=== PATIENT | female | born 1945 | race Caucasian/White ===

== ENCOUNTER 2017-01-31 08:18 | Day surgery (SDC) | payer MEDICARE, OTHER ==
[2015-12-28 22:19] VITALS: BMI 27.4
[2017-01-31] MEDS ORDERED: Lactated Ringer's 500 ML IV ONE ×3 (11:25)
[2017-01-31] MEDS ORDERED: Propofol 10 mg/ml Inj (20 ML) ONE (11:27)
--- NOTE | 2017-01-31 11:27 | CP.SDSHP ---
Same Day Surgery H & P - History Proposed Procedure: EGD Pre-Op Diagnosis: SEE NOTES - Previous Medical/Surgical History Cardiac: Hypertension Pulmonary: Asthma Endocrine/Metabolic: Diabetes, Other - Allergies Allergies: Allergies Penicillins Allergy (Verified 01/31/17 09:24) SWELLING - Physical Exam General Appearance: N Vital Signs: Vital Signs 01/31/17 08:45 Temperature 99 F Pulse Rate 70 Respiratory 19 Rate Blood Pressure 116/50 L O2 Sat by Pulse 97 Oximetry Mental Status: Alert & Oriented x3 Neuro: WNL Lungs: Other GI: WNL - {Optional Preform as Required} Breast: WNL Abdomen: Other Rectal: Other Integument: WNL : WNL Ortho: Other ENT: WNL - Impression Pt. Evaluated Today:Candidate for Anesthesia & Procedure: Yes - Date & Time Time: : Short Stay Discharge - Short Stay Discharge Admitting Diagnosis/Reason for Visit: DYSPEPSIA Disposition: HOME/ ROUTINE
[2017-01-31] MEDS ORDERED: Belladonna-Phenobarbital PO STA (11:29)
[2017-01-31] MEDS ORDERED: Pantoprazole 40 mg EC Tab PO STA (11:29)
[2017-01-31] MEDS ORDERED: Albuterol HFA 90 mcg/actuation (8 g) ONE (11:31)
[2017-01-31 12:00] VITALS: TEMP 98.1
[2017-01-31 12:46] VITALS: BP 107/50; PULSE 68; RESP 12; O2SAT 99
== END 2017-01-31 12:40 | disposition home or self-care (01) ==
LOC: C.ENDO 08:18
PROVIDERS: ATTEND Specialist
DX: K20.9 Esophagitis, unspecified (principal); K44.9 Diaphragmatic hernia without obstruction or gangrene; K29.50 Unspecified chronic gastritis without bleeding
CPT/HCPCS: 43239; 82948; 88305; J2001; J2704; J7120

== ENCOUNTER 2018-10-25 14:48 | Outpatient (CLI) | payer MEDICARE, OTHER | END 2018-10-25 14:49 | disposition home or self-care (01) | LOC: C.MAMMO 14:49 | DX: Z12.31 Encounter for screening mammogram for malignant neoplasm of breast (principal); Z80.3 Family history of malignant neoplasm of breast ==